=== PATIENT | female | born 1955 | race Caucasian/White ===

== ENCOUNTER 2018-08-12 13:57 | Emergency (ER) | payer OTHER ==
[~2018-08-12] VITALS: Ht 165.1 cm; Wt 79.8 kg
[2018-08-12] MEDS ORDERED: NORCO 5-325 TA1 EACH PO (17:35)
== END 2018-08-12 18:10 | disposition home or self-care (01) ==
LOC: ED 13:57
DX: S39.012A Strain of muscle, fascia and tendon of lower back, initial encounter (principal); Z90.710 Acquired absence of both cervix and uterus; Z88.0 Allergy status to penicillin; Z88.5 Allergy status to narcotic agent; X50.9XXA Other and unspecified overexertion or strenuous movements or postures, initial encounter
CPT/HCPCS: 72100; 96372; 99283-25; J1885

== ENCOUNTER 2018-10-27 11:26 | Emergency (ER) | payer OTHER ==
[~2018-10-27] VITALS: Ht 165.1 cm; Wt 80.3 kg
[~2018-10-27 11:26] MED LIST: NORCO 5-325 TA1 EACH PO
[2018-10-27] MEDS ORDERED: INDOMETHACIN50 MG PO (14:41)
== END 2018-10-27 15:15 | disposition home or self-care (01) ==
LOC: ED 11:26
DX: S89.92XA Unspecified injury of left lower leg, initial encounter (principal); S89.91XA Unspecified injury of right lower leg, initial encounter; M54.9 Dorsalgia, unspecified; M25.561 Pain in right knee; M25.562 Pain in left knee; Z90.710 Acquired absence of both cervix and uterus; Z88.5 Allergy status to narcotic agent; Z88.0 Allergy status to penicillin; X50.9XXA Other and unspecified overexertion or strenuous movements or postures, initial encounter
CPT/HCPCS: 96372; 99283-25; J1885

== ENCOUNTER 2019-04-27 07:00 | Day surgery (SDC) | payer OTHER ==
[~2019-04-27] VITALS: Ht 165.1 cm; Wt 82.5 kg
[~2019-04-27 07:00] MED LIST changes: +DAILY MULTIPLE1 EACH PO; +INDOMETHACIN50 MG PO; +VITAMIN D2000 UNIT PO
--- NOTE | 2019-04-27 07:49 | NUR ---
WITH IV START, PT STATES BEING NAUSEATED. PROVIDED ALCOHOL SWAB TO INHALE, EMESIS BAG AND STRETCHER REPOSITIONED TO 25 DEGREES AND LIGHTS DIMMED. PT RESTS SUPINE AND NAUSEA RESOLVES IN APPROX 5-10 MINUTES.
--- NOTE | 2019-04-27 08:52 | NUR ---
PT HAVING TROUBLE WITH NAUSEA SINCE IV. [employer] TRAINER SUGGESTED THAT NOW IS NOT A GOOD TIME TO VISIT. WILL FOLLOW NEEDED
--- NOTE | 2019-04-27 09:10 | NUR ---
04/27/19 0910 Sheets,Michell 0903 PT ARRIVED RESP EVEN AND UNLABORED, O2 NC AT 3L. PT REACTIVE TO VERBAL STIMULI. 09 O2 REMOVED. PT DENIES NAUSEA AND PAIN. 0908 MD AT BEDSIDE AND TALKING TO PT, PT DROWSY AND BACK TO SLEEP.
--- NOTE | 2019-04-27 18:54 | OR ---
[facility] [address], [place] [address] Signed DATE OF OPERATION: 04/27/2019 SURGEON: Michelle Shea MD PREOPERATIVE DIAGNOSIS: Colon screening. POSTOPERATIVE DIAGNOSIS: Normal colon to cecum. PROCEDURE PERFORMED: Total colonoscopy to cecum. ANESTHESIA: Intravenous sedation, fentanyl 100 mcg, Versed 5 mg. INDICATION: This 63-year-old white woman is a patient of SERGEY Branch and she is referred for screening colonoscopy. She has no family history of colon cancer and no symptoms of bleeding, diarrhea, or constipation. She does have distant history of cervical carcinoma having undergone hysterectomy as part of her treatment plan. She has no symptoms of pelvic pain or other issue currently. She was admitted at this time to undergo colonoscopy for screening understanding the risks of bleeding, infection, and perforation. FINDINGS: The prep was excellent. Complete colonoscopy was undertaken of the cecum without question. There was no sign of polyps, diverticular formation, colitis, or cancer. DESCRIPTION OF PROCEDURE: The patient was brought to the endoscopy suite and placed in lateral decubitus position given intravenous sedation to the point of slurred speech and nystagmus. Digital rectal examination was normal. An Olympus video colonoscope was passed in the rectum and manipulated throughout the colon ultimately intubating the cecum itself. The ileocecal valve and appendiceal orifice were normal. The scope was withdrawn from that point. Careful and thorough withdrawal of scope and examination showed no sign of polyps, diverticular formation, colitis, or cancer. Retroflexed view of the colon was normal. The scope was removed. The patient was taken to recovery room in good condition. Electronically Signed By: MICHELLE SHEA MD 04/27/19 1854 PATIENT NAME: KATARINA NEGRON OPERATIVE REPORT DATE OF : 55 REPORT #: [id number] PHYSICIAN: MICHELLE SHEA MD PCP: PAUL CARNEY PAC REPORT IS CONFIDENTIAL AND NOT TO BE RELEASED WITHOUT AUTHORIZATION [facility] [address], [place] [address] Signed CONCLUDING DIAGNOSIS: Normal colon. PLAN: Recommend repeat colonoscopy in 10 years, sooner if clinically indicated. She will return to the ongoing care of SERGEY Branch. MD JORGE Fountain/MODL /[id number] cc: SERGEY Branch Copies: ~ Electronically Signed By: MICHELLE SHEA MD 04/27/19 1854 PATIENT NAME: KATARINA NEGRON OPERATIVE REPORT DATE OF : 55 REPORT #: [id number] PHYSICIAN: MICHELLE SHEA MD PCP: PAUL CARNEY PAC REPORT IS CONFIDENTIAL AND NOT TO BE RELEASED WITHOUT AUTHORIZATION
== END 2019-04-27 09:47 | disposition home or self-care (01) ==
LOC: OPS 07:00 → DS 07:00 → OPS 08:30 → DS 09:00 → OPS 09:00
PROVIDERS: Surgery
PROC: 0DJD8ZZ Inspection of Lower Intestinal Tract, Via Natural or Artificial Opening Endoscopic (ICD-10-PCS; principal; 2019-04-27 08:30)
DX: Z12.11 Encounter for screening for malignant neoplasm of colon (principal); Z88.0 Allergy status to penicillin; Z88.5 Allergy status to narcotic agent; Z87.891 Personal history of nicotine dependence; Z85.41 Personal history of malignant neoplasm of cervix uteri
CPT/HCPCS: 99153; G0500; J2250; J3010; J7120